=== PATIENT | male | born 1995 | race Caucasian/White ===

== ENCOUNTER 2024-03-04 12:26 | Outpatient (CLI) | payer SELFPAY ==
--- NOTE | ~2024-03-04 | CT_ITS ---
EXAMINATION: CTA brain carotid DATE: 03/04/2024 13:21 INDICATION: Migraine. Neck pain. Occipital neuralgia. TECHNIQUE: Computed tomographic angiography (CTA) of the head was performed without and with 100 mL O mnipaque-350 intravenous contrast. CTA of the neck was performed with intravenous contrast. Automated exposure control and iterative reconstruction technique were employed. The dose-length product was 1 556.47 mGy-cm. Maximum intensity projection and volume rendered 3D-reconstructions were created by tung shepherd technologist on a separate workstation. COMPARISON: None. FINDINGS: HEAD CTA: There is no intracranial hemorrhage, acute infarction, or abnormal intracranial mass lesion . The ventricles are normal in size. The orbits are normal. There is mild mucosal thickening in the e thmoid sinuses. The mastoid air cells are normal. Left vertebral artery is dominant. There is no sign ificant stenosis of basilar artery or the posterior cerebral arteries. There is no significant stenos is of the intracranial internal carotid arteries or anterior or middle cerebral arteries. Anterior co mmunicating artery is normal. The posterior communicating arteries are normal. There is no aneurysm. NECK CTA: There are no pathologically enlarged lymph nodes. There is no significant stenosis of the v ertebral arteries. There is no visible plaque in the proximal internal carotid arteries. There is 0% stenosis of the proximal right internal carotid artery relative to normal distal artery lumen diamete r (NASCET criteria). There is 0% stenosis of the proximal left internal carotid artery relative to no rmal distal artery lumen diameter. There is mild cervical spondylosis. IMPRESSION: 1. Normal brain. No aneurysm or significant intracranial arterial stenosis. 2. 0% stenosis of the proximal internal carotid arteries relative to normal distal artery lumen diame ters (NASCET criteria). Reviewed, dictated and finalized at location A. IMPRESSION: 1. Normal brain. No aneurysm or significant intracranial arterial stenosis. 2. 0% stenosis of the proximal internal carotid arteries relative to normal dis elliot artery lumen diameters (NASCET criteria).
== END 2024-03-04 12:27 ==
PROVIDERS: PCP Nurse Practitioner Adult Health; Visit Provider Nurse Practitioner Adult Health
DX: M54.2 Cervicalgia (principal); G43.819 Other migraine, intractable, without status migrainosus; M54.81 Occipital neuralgia
CPT/HCPCS: 70496; 70498; Q9967